=== PATIENT | female | born 1975 | race Caucasian/White ===

== ENCOUNTER 2016-10-18 07:11 | Emergency (ER) | payer OTHER ==
[~2016-10-18 07:11] MED LIST: AUGMENTIN 875-1 EAC1 PO; CELEXA40 M2 PO; FLEXERIL10 MG PO; KEFLEX500 M1 PO; PHENERGAN W/CO120 M1 PO; PREDNISONE20 MG PO; PROVENTIL HFA6.7 GM IH; TRAZODONE HCL100 M1 PO; TYLENOL #31 TA1 PO; VIBRAMYCIN100 MG PO; ZANAFLEX4 M PO
[2016-10-18] MEDS ORDERED: SKELAXIN800 M3 PO (07:18)
[2016-10-18] MEDS ORDERED: OMEPRAZOLE40 M2 PO (07:19)
[2016-10-18] MEDS ORDERED: LAMICTAL200 M2 PO (07:19)
[2016-10-18] MEDS ORDERED: AMBIEN5 M1 PO (07:19)
[2016-10-18] MEDS ORDERED: REXULTI2 MG PO (07:19)
[2016-10-18] MEDS ORDERED: PREDNISONE20 M1 PO (07:56)
[2016-10-19] MEDS ORDERED: PREDNISONE10 M1 PO (05:45)
[2016-10-19] MEDS ORDERED: NORCO 5-325 TA1 EACH PO (06:45)
== END 2016-10-18 08:17 ==
LOC: EDMED 07:11
DX: M54.18 Radiculopathy, sacral and sacrococcygeal region (principal); Z98.890 Other specified postprocedural states; Z79.1 Long term (current) use of non-steroidal anti-inflammatories (NSAID)

== ENCOUNTER 2016-10-19 05:24 | Emergency (ER) | payer OTHER ==
[~2016-10-19 05:24] MED LIST changes: +AMBIEN5 M1 PO; +LAMICTAL200 M2 PO; +OMEPRAZOLE40 M2 PO; +PREDNISONE20 M1 PO; +REXULTI2 MG PO; +SKELAXIN800 M3 PO
[2016-10-19] MEDS ORDERED: PREDNISONE10 M1 PO (05:45)
[2016-10-19] MEDS ORDERED: NORCO 5-325 TA1 EACH PO (06:45)
== END 2016-10-19 06:51 ==
LOC: EDMED 05:24
DX: M51.16 Intervertebral disc disorders with radiculopathy, lumbar region (principal); F41.9 Anxiety disorder, unspecified; F32.9 Major depressive disorder, single episode, unspecified; Z90.710 Acquired absence of both cervix and uterus; Z98.890 Other specified postprocedural states; Z79.899 Other long term (current) drug therapy

== ENCOUNTER 2016-12-19 09:55 | Observation (INO) | payer OTHER ==
[~2016-12-19 09:55] MED LIST changes: +NORCO 5-325 TA1 EACH PO; +PREDNISONE10 M1 PO
[2016-12-19] MEDS ORDERED: TYLENOL WITH C1 EAC1 PO (10:11)
[2016-12-19] MEDS ORDERED: GLUCOPHAGE XR500 M1 PO (10:12)
[2016-12-19 10:50] LABS: BASO % 0.6 % (0-2); EOS % 1.3 % (0-7); EOSINOPHIL ABSOLUTE COUNT 0.1 tho/cmm (0.0-0.7); HCT-HEMATOCRIT 35.4 % (34.0-49.0); HGB-HEMOGLOBIN 11.8 gm/dl (12.0-15.5); IMMATURE GRANULOCYTES ABSOLUTE 0.02 tho/cmm (0-0.03); IMMATURE GRANULOCYTES PERCENT 0.3 % (0-0.3); LYMPH % 21.9 % (20-45); LYMPH ABSOLUTE COUNT 1.6 tho/cmm (0.8-4.5); MCH (MEAN CORPUSCULAR HGB) 28.4 pg (28.0-32.0); MCHC MEAN CORPUSCULAR HGB CONC 33.3 % (32.0-36.0); MCV (MEAN CELL VOLUME) 85.1 fl (82.0-96.0); MEAN PLATELET VOLUME 9.7 cmc (9.4-12.4); MONO % 9.1 % (0-12); MONOCYTE ABSOLUTE COUNT 0.7 tho/cmm (0.0-1.2); NEUTROPHIL ABSOLUTE COUNT 4.8 tho/cmm (1.6-8.0); NEUTROPHIL-AUTOMATED 4.8 tho/cmm (1.6-8.0); NEUTROPHILS % 66.8 % (40-80); PLATELET COUNT 280 tho/cmm (150-450); RED BLOOD COUNT 4.16 mil/cmm (4.00-5.20); RED CELL DISTRIBUTION WIDTH 13.5 % (12.4-16.4); WHITE BLOOD COUNT 7.2 tho/cmm (4.0-10.0)
[2016-12-19 11:05] LABS: ANION GAP 12 mmol/L (0-20); BLOOD UREA NITROGEN 12 mg/dl (6-24); CALCIUM 8.7 mg/dl (8.5-10.5); CARBON DIOXIDE-VENOUS 24 mmol/L (22-32); CHLORIDE 111 mmol/l (96-110); CREATININE 0.73 mg/dl (0.50-1.10); GLUCOSE 91 mg/dL (70-110); POTASSIUM 4.3 mmol/L (3.7-5.1); SODIUM 143 mmol/L (135-145); eGFR VALUE FOR BLACK >90 mL/Min
[2016-12-19] MEDS ORDERED: ZOFRAN ODT4 MG PO (11:45)
[2016-12-19] MEDS ORDERED: NORCO 5-325 TA1 EACH PO (11:45)
== END 2016-12-20 14:10 ==
LOC: EDMED 09:55 → EMR2 13:54 → CAR1 14:30
PROVIDERS: Emergency Medicine; ADMIT Internal Medicine Cardiovascular Disease
DX: R07.9 Chest pain, unspecified (principal); F32.9 Major depressive disorder, single episode, unspecified; F41.9 Anxiety disorder, unspecified; G40.909 Epilepsy, unspecified, not intractable, without status epilepticus; R73.03 Prediabetes; Z82.49 Family history of ischemic heart disease and other diseases of the circulatory system; Z79.899 Other long term (current) drug therapy; Z90.710 Acquired absence of both cervix and uterus; Z98.890 Other specified postprocedural states
CPT/HCPCS: A9500; C8929; G0378; J2270